=== PATIENT | male | born 1960 | race Two or more races ===

== ENCOUNTER 2025-03-29 12:55 | Emergency (ER) | payer BC ==
[~2025-03-29] VITALS: Ht 165.1 cm; Wt 66.7 kg
[2025-03-29 12:58] VITALS: TEMP 98
[2025-03-29 13:29] LABS: PLATELET COUNT (AUTO) 210 K/uL (150-450); RED BLOOD CELL COUNT(AUTO) 4.32 MIL/uL (4.5-6.0); RED CELL DISTRIBUTION WIDTH 15.1 % (11.5-15.0); WHITE BLOOD COUNT (AUTO) 4.2 K/uL (4.3-11.0)
[2025-03-29 13:41] LABS: CALCIUM, SERUM 8.9 mg/dL (8.5-10.1); CREATININE 0.8 mg/dL (0.6-1.3); SODIUM SERUM 136 mmol/L (136-145); UREA NITROGEN, BLOOD 16 mg/dL (7-18)
[2025-03-29 13:58] LABS: ASPARTATE AMINOTRANSFERASE 33 U/L (15-37); INR 1.19 (0.91-1.10); NT-PRO BNP 62 pg/mL (0-125); TOTAL PROTEIN, SERUM 8.0 g/dL (6.4-8.2)
[2025-03-29 15:42] LABS: LACTIC ACID 2.0 mmol/L (0.4-2.0)
[2025-03-29] MEDS ORDERED: OXYC5TAB3 PO (16:25)
[2025-03-29] MEDS ORDERED: LISI40TA13 PO (16:25)
[2025-03-29 20:00] VITALS: BP 134/87; O2SAT 98
== END 2025-03-29 20:31 | disposition short-term general hospital (02) ==
LOC: ER 12:58
DX: J90 Pleural effusion, not elsewhere classified (principal); R09.02 Hypoxemia; C78.00 Secondary malignant neoplasm of unspecified lung; I10 Essential (primary) hypertension
CPT/HCPCS: 36415; 71045-TC; 80048-TC; 80076-TC; 83605-TC; 83880; 84484-TC; 85025-TC; 85730-TC; 87040-TC; 87081-TC